=== PATIENT | female | born 1970 | race Caucasian/White ===

== ENCOUNTER 2025-03-22 16:01 | Emergency (ER) | payer BC, SELFPAY ==
--- NOTE | ~2025-03-22 | CT_ITS ---
CTA brain carotid Ordering provider: James Holt MD History: . vertigo sudden onset, right sided (Positional vertigo). NIH stroke scale of 0. Comparison: None. Technique: CT angiogram head and neck was performed following timed intravenous injection of contrast . Thin slice axial images and reformatted coronal images were obtained. Three dimensional reformatted images of the brain were also obtained using a [facility] workstation. DLP: 978 mGy-cm FINDINGS: HEAD: --ANTERIOR AND MIDDLE CEREBRAL ARTERIES AND BRANCHES: Normal caliber and contour. --INTERNAL CAROTID ARTERIES: Normal caliber and contour. --BASILAR ARTERY AND BRANCHES: Normal caliber and contour. No atheromatous disease. --POSTERIOR CEREBRAL ARTERIES: Normal caliber and contour --POSTERIOR COMMUNICATING ARTERIES: Present and unremarkable. --ANEURYSM: None visualized. --BRAIN: Please refer to report of CT head performed the same day. --BONES AND SUPERFICIAL SOFT TISSUES: Please refer to report of CT head performed the same day. --PARANASAL SINUSES AND MASTOIDS: Please refer to report of CT head done the same day. NECK: --RIGHT CERVICAL CAROTID SYSTEM: Normal caliber and contour. Percent stenosis per NASCET criteria is 0% --LEFT CERVICAL CAROTID SYSTEM: Normal caliber and contour. Percent stenosis per NASCET criteria is 0% --VERTEBRAL ARTERIES: No vertebral artery dissection. Normal caliber and contour. --VISUALIZED AORTIC ARCH AND BRANCHING VESSELS: Normal caliber and contour. No significant atheromato us disease. --SOFT TISSUES: Unremarkable. --CERVICAL SPINE: Age appropriate degenerative changes. IMPRESSION: 1. Normal CTA head and neck. Percent stenosis per NASCET criteria is 0% bilaterally. 2. No vertebral artery dissection. 3. No large vessel occlusion Reviewed, dictated and finalized at location A. IMPRESSION: 1. Normal CTA head and neck. Percent stenosis per NASCET criteria is 0% bilat erally. 2. No vertebral artery dissection. 3. No large vessel occlusion
--- NOTE | ~2025-03-22 | XR_ITS ---
CHEST RADIOGRAPH, PA AND LATERAL CLINICAL HISTORY: dizziness . COMPARISON: None available TECHNIQUE: PA and lateral views of the chest. FINDINGS The cardiomediastinal silhouette is unremarkable. The lungs are clear. IMPRESSION: No focal infiltrate or effusion. Reviewed, dictated and finalized at location A.
--- NOTE | ~2025-03-22 | CT_ITS ---
History: Dizziness PROCEDURE: CT head without contrast. COMPARISON: None TECHNIQUE: Axial imaging of the head performed from the skull base to the vertex without IV contrast. Sagittal a nd coronal reformations obtained. DLP: 681 mGy-cm FINDINGS: The ventricles are normal in size, shape and position. There is no mass, mass effect or midline shift. There is no abnormal extra-axial fluid collection or intracranial hemorrhage. Visualized paranasal sinuses are clear. The mastoid air cells are well aerated. No acute displaced fractures within the overlying cranium. Bifrontal atrophy is noted. Impression: Bifrontal atrophy, without acute intracranial hemorrhage or suspicious mass effect. Reviewed, dictated and finalized at location A. Impression: Bifrontal atrophy, without acute intracranial hemorrhage or suspicious mass eff ect.
[2025-03-22 16:14] VITALS: BP 153/89; PULSE 68; RESP 16; TEMP 37; O2SAT 99
[2025-03-22 18:21] VITALS: BP 151/87; PULSE 75; TEMP 36.4; O2SAT 100
--- NOTE | 2025-03-22 18:33 | ED.DIZZY ---
HPI - Dizziness General Chief Complaint: Dizziness <Kimberly Galvin PA-C - Last Filed: 03/24/25 17:35> Stated Complaint: lightheaded, dizzy while at dentist today <Kimberly Galvin PA-C - Last Filed: 03/24/25 17:35> Time Seen by Provider: 03/22/25 18:33 <Kimberly Galvin PA-C - Last Filed: 03/24/25 17:35> Focused HPI: This is a 54 year old female that presents to the ER for dizziness. Reports she was at the dentist office when she was laid back and started to feel dizzy. Reports she felt like the room is spinning. Reports history of similar episode years ago. Reports some nausea. Denies vision changes, vomiting. GENERAL: Uncomfortable, well-nourished, and in no acute distress. HEAD: Normocephalic, atraumatic. CHEST: Clear to auscultation. ?No respiratory distress. HEART: Regular rate and rhythm.? NEURO: ?Alert and oriented x3. Patient screened in triage and initial orders placed.? ?Additional care and disposition to be based upon?diagnostic testing and treatment. <Kimberly Galvin PA-C - Last Filed: 03/24/25 17:35> History of Present Illness HPI Narrative: Agree with the HPI above. Additional collateral information from family members states that patient had elevated blood pressures in the 210 range when the symptoms started which came down without any intervention. She had Zofran which helped her nauseousness and route but she still profoundly vertiginous and stumbling and walking towards the right side where she feels like she is intoxicated <James Holt MD - Last Filed: 03/23/25 06:06> Related Data Allergies/Adverse Reactions: Allergies Allergy/AdvReac Type Severity Reaction Status Date / Time steroids AdvReac Intermediate Hallucinati Uncoded 03/22/25 18:53 ng <Kimberly Galvin PA-C - Last Filed: 03/24/25 17:35> Review of Systems Review of Systems: All systems reviewed & are unremarkable except as noted in HPI and below <Kimberly Galvin PA-C - Last Filed: 03/24/25 17:35> Exam Narrative: GENERAL: [Well-appearing, well-nourished, and in no acute distress.] HEAD: [Normocephalic, atraumatic.] EYES: [PERRLA and EOMI.] ENT: Nares clear, no rhinorrhea or epistaxis. Mucous membranes moist. NECK: Supple. CHEST: [Clear to auscultation. No respiratory distress.] HEART: [Regular rate and rhythm]. No murmur heard. [Normal peripheral pulses.] ABDOMEN: [Soft, nondistended], [nontender], [No rigidity or guarding] EXTREMITIES: Normal range of motion. [No edema.] SKIN: Warm, dry, no rash. NEURO: [No focal deficits]. Alert and oriented [x3.]. No ataxia in the arms or legs, no sensory deficits in the face arms or legs. No facial asymmetry or slurring speech. No truncal ataxia. Negative Romberg's test. PSYCH: [Normal mood and affect.] <James Holt MD - Last Filed: 03/23/25 06:06> Course Vital Signs Vital signs: Vital Signs Temperature 98.6 F 03/22/25 16:14 Pulse Rate 68 03/22/25 16:14 Respiratory Rate 16 03/22/25 16:14 Blood Pressure 153/89 H 03/22/25 16:14 Pulse Oximetry 99 03/22/25 16:14 Temperature 97.5 F L 03/22/25 18:21 Pulse Rate 78 03/23/25 00:15 Respiratory Rate 19 03/23/25 00:15 Blood Pressure 141/75 H 03/23/25 00:15 Pulse Oximetry 97 03/23/25 00:15 Oxygen Delivery Room Air 03/22/25 18:50 <Kimberly Galvin PA-C - Last Filed: 03/24/25 17:35> Vital Signs Temperature 98.6 F 03/22/25 16:14 Pulse Rate 68 03/22/25 16:14 Respiratory Rate 16 03/22/25 16:14 Blood Pressure 153/89 H 03/22/25 16:14 Pulse Oximetry 99 03/22/25 16:14 Temperature 97.5 F L 03/22/25 18:21 Pulse Rate 78 03/23/25 00:15 Respiratory Rate 19 03/23/25 00:15 Blood Pressure 141/75 H 03/23/25 00:15 Pulse Oximetry 97 03/23/25 00:15 Oxygen Delivery Room Air 03/22/25 18:50 <James Holt MD - Last Filed: 03/23/25 06:06> MDM - Dizziness MDM Narrative Medical decision making narrative: 54-year-old female presenting for sudden-onset vertiginous symptoms where she feels the room is spinning with some associated nausea and difficulty ambulating with stumbling towards the right side. Symptoms started acutely onset 2:45 p.m. while she was in a dentist's chair. She states when she went back which she had the symptoms started and progressively worsened. She received Zofran by EMS without any significant improvement. Elevated blood pressure of 210 range per EMS and family when symptoms started but currently she is hemodynamically stable to blood pressure 153/89. No tachycardia, tachypnea or fever. Neurological examination with an NIH stroke scale 0 without any signs of ataxia, confusion, strength deficits or sensory deficits. Negative Romberg's testing. She states her symptoms are worse when she looks to the right side and has a history of vertigo and takes meclizine. Given the sudden onset with manipulation as well as the elevated blood pressure readings will after rule out central pathology such as vertebral dissection or acute occlusion which is less likely given her history but she did have elevated risks. Likely benign positional paroxysmal vertigo and we will treat with meclizine and fluids and re-evaluated while workup is underway. CT of the head CT angiography of the head neck obtained as well as EKG, chest x-ray and basic labs. Patient given 25 mg of p.o. meclizine on a fluid bolus. CT angiography shows no abnormalities. Noncontrast head CT without any findings. EKG and chest x-ray unremarkable. Patient's laboratory studies are unremarkable without any significant leukocytosis, no hemoglobin concerns or platelet concerns. Electrolytes are normal. Mildly elevated glucose. Urinalysis without infection. Patient re-evaluated and felt improved. She was given additional dose of diazepam with good effect. Stable for discharge home at this time. Given return precautions and follow-up instructions with ENT. Represcribed meclizine for home. <James Holt MD - Last Filed: 03/23/25 06:06> Medical Records Attestation: I reviewed the patient's medical records. <James Holt MD - Last Filed: 03/23/25 06:06> Lab Data Attestation: I reviewed the patient's lab results. <James Holt MD - Last Filed: 03/23/25 06:06> Result diagrams: 03/22/25 19:47 03/22/25 19:17 <Kimberly Galvin PA-C - Last Filed: 03/24/25 17:35> Labs: Lab Results 03/22/25 03/22/25 03/22/25 Range/Units 19:17 19:29 19:47 WBC 10.8 H (4.5-10.0) K/mm3 RBC 4.63 (4.2-5.4) M/mm3 Hgb 14.5 (12.0-15.0) g/dL Hct 42.1 (37.0-47.0) % MCV 90.9 (80-100) fl MCH 31.3 (26-34) pg MCHC 34.4 (32-36) g/dl RDW 12.2 (11.5-14.5) % Plt Count 242 (150-375) k/mm3 MPV 10.3 (7.4-10.4) fl Immature Gran % (Auto) 0.3 (0-0.5) % Neut % (Auto) 86.0 H (45.5-73.1) % Lymph % (Auto) 9.4 L (18.3-44.2) % [place] % (Auto) 3.4 (2.6-8.5) % Eos % (Auto) 0.4 (0-4.4) % Baso % (Auto) 0.5 (0.2-1.2) % Lymph # (Auto) 1.02 (0.9-3.2) K/mm3 [place] # (Auto) 0.4 (0.1-0.6) K/mm3 Eos # (Auto) 0.0 (0-0.3) K/mm3 Baso # (Auto) 0.1 (0.0-0.1) K/mm3 Abs Immat Gran (auto) 0.03 (0.00-0.031) K/mm3 Absolute Neuts (auto) 9.3 H (1.3-6.7) K/mm3 Absolute Nucleated RBC 0.000 (0.0-0.012) K/mm3 Nucleated RBC % 0.0 (0.0-0.2) % Sodium 136 L (137-145) mmol/L Potassium 4.4 (3.4-5.0) mmol/L Chloride 101 (98-107) mmol/L Carbon Dioxide 24 (22-30) mmol/L Anion Gap 11 (4-12) mmol/L BUN 13 (7-17) mg/dL Creatinine 0.71 (0.7-1.0) mg/dL Estim Creat Clear Calc 92 ml/min Estimated GFR > 60 (59 - ) Glucose 223 H (65-110) mg/dL Calcium 9.4 (8.4-10.2) mg/dL Total Bilirubin 1.9 H (0.2-1.3) mg/dL AST 53 H (14-36) U/L ALT 52 H (6-35) U/L Alkaline Phosphatase 64 (38-126) U/L Total Protein 7.6 (6.3-8.2) g/dL Albumin 4.7 (3.5-5.1) g/dL Urine Color Yellow (Yellow) Urine Appearance Clear (Clear) Urine pH 5.5 (5.0-9.0) Ur Specific [place] 1.018 (1.001-1.035) Urine Protein Negative (Negative) mg/dL Urine Glucose (UA) Negative (Negative) mg/dL Urine Ketones Negative (Negative) mg/dL Ur Blood (Man) Negative (Negative) Urine Nitrate Negative (Negative) Urine Bilirubin Negative (Negative) Urine Urobilinogen 0.2 (<2.0) mg/dL Leukocyte Esterase Rfl Negative (Negative) ALEKSANDR/UL <Kimberly Galvin PA-C - Last Filed: 03/24/25 17:35> Lab Results 03/22/25 03/22/25 03/22/25 Range/Units 19:17 19:29 19:47 WBC 10.8 H (4.5-10.0) K/mm3 RBC 4.63 (4.2-5.4) M/mm3 Hgb 14.5 (12.0-15.0) g/dL Hct 42.1 (37.0-47.0) % MCV 90.9 (80-100) fl MCH 31.3 (26-34) pg MCHC 34.4 (32-36) g/dl RDW 12.2 (11.5-14.5) % Plt Count 242 (150-375) k/mm3 MPV 10.3 (7.4-10.4) fl Immature Gran % (Auto) 0.3 (0-0.5) % Neut % (Auto) 86.0 H (45.5-73.1) % Lymph % (Auto) 9.4 L (18.3-44.2) % [place] % (Auto) 3.4 (2.6-8.5) % Eos % (Auto) 0.4 (0-4.4) % Baso % (Auto) 0.5 (0.2-1.2) % Lymph # (Auto) 1.02 (0.9-3.2) K/mm3 [place] # (Auto) 0.4 (0.1-0.6) K/mm3 Eos # (Auto) 0.0 (0-0.3) K/mm3 Baso # (Auto) 0.1 (0.0-0.1) K/mm3 Abs Immat Gran (auto) 0.03 (0.00-0.031) K/mm3 Absolute Neuts (auto) 9.3 H (1.3-6.7) K/mm3 Absolute Nucleated RBC 0.000 (0.0-0.012) K/mm3 Nucleated RBC % 0.0 (0.0-0.2) % Sodium 136 L (137-145) mmol/L Potassium 4.4 (3.4-5.0) mmol/L Chloride 101 (98-107) mmol/L Carbon Dioxide 24 (22-30) mmol/L Anion Gap 11 (4-12) mmol/L BUN 13 (7-17) mg/dL Creatinine 0.71 (0.7-1.0) mg/dL Estim Creat Clear Calc 92 ml/min Estimated GFR > 60 (59 - ) Glucose 223 H (65-110) mg/dL Calcium 9.4 (8.4-10.2) mg/dL Total Bilirubin 1.9 H (0.2-1.3) mg/dL AST 53 H (14-36) U/L ALT 52 H (6-35) U/L Alkaline Phosphatase 64 (38-126) U/L Total Protein 7.6 (6.3-8.2) g/dL Albumin 4.7 (3.5-5.1) g/dL Urine Color Yellow (Yellow) Urine Appearance Clear (Clear) Urine pH 5.5 (5.0-9.0) Ur Specific [place] 1.018 (1.001-1.035) Urine Protein Negative (Negative) mg/dL Urine Glucose (UA) Negative (Negative) mg/dL Urine Ketones Negative (Negative) mg/dL Ur Blood (Man) Negative (Negative) Urine Nitrate Negative (Negative) Urine Bilirubin Negative (Negative) Urine Urobilinogen 0.2 (<2.0) mg/dL Leukocyte Esterase Rfl Negative (Negative) ALEKSANDR/UL <James Holt MD - Last Filed: 03/23/25 06:06> Imaging Data Attestation: I personally reviewed and interpreted this imaging study as follows: <James Holt MD - Last Filed: 03/23/25 06:06> My impression: Impressions Chest X-Ray 03/22/25 19:12 IMPRESSION: No focal infiltrate or effusion. Head CT 03/22/25 19:16 Impression: Bifrontal atrophy, without acute intracranial hemorrhage or suspicious mass effect. Head/Neck CTA 03/22/25 22:22 IMPRESSION: 1. Normal CTA head and neck. Percent stenosis per NASCET criteria is 0% bilaterally. 2. No vertebral artery dissection. 3. No large vessel occlusion <James Holt MD - Last Filed: 03/23/25 06:06> Discharge Plan Discharge Clinical Impression: Benign paroxysmal positional vertigo Qualifiers: Laterality: unspecified laterality Qualified Code(s): H81.10 - Benign paroxysmal vertigo, unspecified ear <Kimberly Galvin PA-C - Last Filed: 03/24/25 17:35> Patient Disposition: Home <Kimberly Galvin PA-C - Last Filed: 03/24/25 17:35> Condition: Stable <Kimberly Galvin PA-C - Last Filed: 03/24/25 17:35> Instructions: Antibiotic Form, Vertigo (ED), Dizziness (ED) <Kimberly Galvin PA-C - Last Filed: 03/24/25 17:35> Additional Instructions: CT scans are normal, no signs of stroke or arterial insufficiency or dissection. Laboratory studies are reassuring. Treatment will be for benign vertigo and referral to ENT. Follow-up with regular doctors as well and return with any emergent concerns. <Kimberly Galvin PA-C - Last Filed: 03/24/25 17:35> Patient Language: Yi <Kimberly Galvin PA-C - Last Filed: 03/24/25 17:35> Prescriptions: New meclizine 25 mg tablet 25 mg PO TID PRN (Reason: dizziness) 10 Days Qty: 30 0RF <Kimberly Galvin PA-C - Last Filed: 03/24/25 17:35> Follow-up/Referrals: Bayron Petersen MD [Physician] - 1 Week ([facility]) PHYSICIAN NOT ON STAFF,NONSTAFF [Primary Care Provider] - <Kimberly Galvin PA-C - Last Filed: 03/24/25 17:35> Time of Disposition: 23:57 <Kimberly Galvin PA-C - Last Filed: 03/24/25 17:35> 23:57 <James Holt MD - Last Filed: 03/23/25 06:06>
--- NOTE | 2025-03-22 18:35 | ECG_ITS ---
Test Date: 2025-03-22 18:45:28 Measurements Intervals [place] Rate: 69 P: 46 MA: 153 QRS: 22 QRSD: 98 T: 14 QT: 399 QTc: 429 Interpretive Statements SINUS RHYTHM BASELINE ARTIFACT- I, II, III, AVR, AVL, AVF, V1, V3 NORMAL ECG No previous ECG available for comparison Electronically Signed On 03-22-2025 20:38:34 CDT by Osmani López D.O.
[2025-03-22 18:50] VITALS: BP 176/71; PULSE 71; RESP 18; O2SAT 98
--- NOTE | 2025-03-22 19:22 | PC.NURSE ---
Assumed care of patient after receiving bedside report from FLAVIO Hirsch @ [phone]
[2025-03-22 19:23] VITALS: BP 176/71; PULSE 76; RESP 17
[2025-03-22 19:35] VITALS: BP 151/86; PULSE 81; RESP 17; O2SAT 99
[2025-03-22 19:38] LABS: Alanine Aminotransferase 52 U/L (6-35); Albumin Level 4.7 g/dL (3.5-5.1); Alkaline Phosphatase 64 U/L (38-126); Anion Gap 11 mmol/L (4-12); Aspartate Amino Transferase 53 U/L (14-36); Bilirubin,Total 1.9 mg/dL (0.2-1.3); Blood Urea Nitrogen 13 mg/dL (7-17); Calcium 9.4 mg/dL (8.4-10.2); Carbon Dioxide 24 mmol/L (22-30); Chloride 101 mmol/L (98-107); Estimated CRCL calculation 92 ml/min; Estimated Glomerular Filt Rate > 60; Glucose 223 mg/dL (65-110); Potassium 4.4 mmol/L (3.4-5.0); Sodium 136 mmol/L (137-145); Total Protein 7.6 g/dL (6.3-8.2)
--- OUTSIDE RECORDS SUMMARY | 2025-03-22 19:41 | XMS_ITS | Clinical Summary ---
Author Organization [address] Address [address] [place] [id number] Care Team Providers Care Card Doffer Name Role Phone Unknown, Notinfile Primary Care Provider Unavail able Allergies Active Allergy Reactions Criticality Noted Date Comments Prednisone Hallucinations Medium 06/23/2017 Medications acetaminophen (TYLENOL) 500 mg tablet Take 2 tablets (1,000 mg total) by mouth once Active atorvastatin (LIPITOR) 10 mg tablet 5 Active cholecalciferol (VITAMIN D-3) 2000 unit capsule Take by mouth daily Active levothyroxine (SYNTHROID) 125 mcg tablet 5 Active meclizine (ANTIVERT) 25 mg tablet TK 1 T PO TID PRF DIZZINESS 7 Active metFORMIN (GLUCOPHAGE) 500 mg tablet 5 Active metoprolol tartrate (LOPRESSOR) 25 mg immediate release tablet Take 1 tablet (25 mg total) by mouth 2 (two) times a day 1 Active cyanocobalamin (Vitamin B-12) 1,000 mcg sublingual tablet Take 1 tablet (1,000 mcg total) by mouth daily Active multivit with bdu-SR-bulpxiod 0.4-600 mg-mcg tablet Take by mouth Active benzonatate (TESSALON) 200 mg capsuleIndicati ons:Subacute cough Take 1 capsule (200 mg total) by mouth 3 (three) times a day as needed for cough keep tessalon out of reach of children, especially children under the age of 10, due to possible serious risk such as if ingested by children under the age of 10. 30 capsule 5 Active Active Problems Problem Noted Date Diagnosed Date Chronic fatigue 04/20/2019 Hot flashes 04/20/2019 Graves disease 12/31/2017 Multiple thyroid nodules 12/31/2017 Obesity (BMI 30-39.9) 06/23/2017 Fatty liver 07/11/2016 Encounters Date Type Department Care Team Description 01/07/2025 4:15 PM CDT Office Visit [facility] Care at [address] [phone] Jennifer Bailey NP Acute maxillary sinusitis, recurrence not specified (Primary Dx); Subacute cough from Last 3 Months Social History Tobacco Use Types Packs/Day Years Used Date Smoking Tobacco: Never Assessed Comments Unknown Sex and Gender Information Value Date Recorded Sex Assigned at Not on file Legal Sex Female 2:29 PM CDT Gender Identity Not on file Sexual Orientation Not on file Obstetrics History Last Filed Vital Signs Vital Sign Reading Time Taken Comments Blood Pressure 140/84 01/07/2025 4:11 PM CDT Pulse 78 01/07/2025 4:27 PM CDT Temperature 36.6 C (97.8 F) 01/07/2025 4:11 PM CDT Respiratory Rate 22 01/07/2025 4:11 PM CDT Oxygen Saturation 99% 01/07/2025 4:27 PM CDT Inhaled Oxygen Concentration - - Weight 108.9 kg (240 lb) 01/07/2025 4:11 PM CDT Height 160 cm (5' 3) 01/07/2025 4:11 PM CDT Body Mass Index 42.51 01/07/2025 4:11 PM CDT Plan of Treatment Health Maintenance Due Date Last Done Comments Breast Cancer Screening-Mammogram 1968 Cervical Cancer Screening 1968 Colon Cancer Screening-Colonoscopy 1968 Depression Screening 1968 Hepatitis C Screening 1968 Hepatitis B Screening 1986 Regular Well Visit/Exam 18-64 1986 Pneumococcal vaccine <65 (1 of 2 - PCV) 1987 Zoster Vaccine (1 of 2) 2018 Covid-19 Vaccine (3 - season) 04/11/202404/2021, 10/27/2020 Influenza Vaccine (#1) 2025 DTaP/Tdap/Td Vaccine (2 - Td or Tdap) 12/21/2025 Insurance [facility] Care Teams Card Doffer Relationship Specialty Start Date End Date Unknown, Notinfile PCP - General 01/07/25
[2025-03-22 19:44] LABS: Add Urine Microscopic? NO; Appearance Urine Clear (Clear); Glucose Urine UA Negative (Negative); Leukocyte Esterase Ur Negative LEU/UL (Negative); Nitrate Urine Negative (Negative); Specific Grav Ur 1.018 (1.001-1.035)
[2025-03-22 19:52] LABS: Hematocrit 42.1 % (37.0-47.0); Hemoglobin 14.5 g/dL (12.0-15.0); Immature Granulocyte Percent A 0.3 % (0-0.5); Lymphocytes Absolute Auto 1.02 K/mm3 (0.9-3.2); Mean Corpuscular HGB Conc 34.4 g/dl (32-36); Mean Corpuscular Hemoglobin 31.3 pg (26-34); Mean Corpuscular Volume 90.9 fl (80-100); Nucleated Red Blood Cells Absolute Auto 0.000 K/mm3 (0.0-0.012); Nucleated Red Blood Cells Perc 0.0 % (0.0-0.2); Platelet Count Result 242 k/mm3 (150-375); Red Blood Count 4.63 M/mm3 (4.2-5.4); White Blood Count 10.8 K/mm3 (4.5-10.0)
[2025-03-22] MEDS: LACTATED RINGERS 1,000 ML 999 ML IV CONT (20:21)
[2025-03-22] MEDS: MECLIZINE HCL 25 MG TABLET PO (20:21)
[2025-03-22 21:03] VITALS: BP 164/77; PULSE 73; RESP 19; O2SAT 97
[2025-03-22] MEDS: diazePAM INJ (*CRX) 10 MG/2 ML SYRINGE 2.5 MG IV PUSH (23:25)
[2025-03-23 00:15] VITALS: BP 141/75; PULSE 78; RESP 19; O2SAT 97
== END 2025-03-23 00:20 | disposition home or self-care (01) ==
PROVIDERS: Physician Assistant; Emergency Provider Student in an Organized Health Care Education/Training Program
DX: H81.10 Benign paroxysmal vertigo, unspecified ear (principal)
CPT/HCPCS: 36415; 70450; 70496; 70498; 71046; 80053; 81003; 85025; 93005; 96361; 96374; 99284; A9270; J3360; J7120; Q9967